=== PATIENT | male | born 1975 | race Caucasian/White ===

== ENCOUNTER 2018-01-20 15:35 | Emergency (ER) | payer SELFPAY | END 2018-01-20 15:58 | disposition left against medical advice (07) | LOC: ER 15:37 | DX: Z53.21 Procedure and treatment not carried out due to patient leaving prior to being seen by health care provider (principal) ==

== ENCOUNTER 2018-12-09 01:17 | Emergency (ER) | payer SELFPAY ==
[~2018-12-09] VITALS: Ht 162.6 cm; Wt 87.5 kg
--- NOTE | 2018-12-09 03:05 | NUR ---
MD AT BEDSIDE FOR HX AND PHYSICAL
[2018-12-09] MEDS ORDERED: diphenhydrAMINE 50 MG/1 ML VIAL IM ONE (03:15)
[2018-12-09] MEDS ORDERED: HYDROMORPHONE 1 MG/1 ML DISP.SYRIN IM ONE (03:15)
[2018-12-09] MEDS ORDERED: diphenhydrAMINE 50 MG/1 ML VIAL ONE ×2 (03:24→03:26)
[2018-12-09] MEDS ORDERED: HYDROMORPHONE 1 MG/1 ML DISP.SYRIN ONE (03:25)
[2018-12-09 04:24] VITALS: BP 130/80
== END 2018-12-09 04:25 | disposition home or self-care (01) ==
LOC: ER 01:22
DX: M54.41 Lumbago with sciatica, right side (principal)
CPT/HCPCS: 96372; 99283; J1170; J1200 ×2; A4663